=== PATIENT | male | born 1970 | race Caucasian/White ===

== ENCOUNTER 2017-01-22 20:18 | Inpatient (IN) | payer BC ==
--- NOTE | ~2017-01-22 | HP ---
Unit #: [id number] #: [id number] Patient: DONTAE ANDERSON [id number] [facility]. [place], [place] [address] [id number] MR#: [id number] NAME: DONTAE ANDERSON ROOM: 476 Age: 46 Sex: M Admission Date: 01/22/2017 : 1970 Attending Physician: Florin Dennis M.D. Primary Care Physician: No Primary Care Physician HISTORY AND PHYSICAL CHIEF COMPLAINT Nausea, vomiting. HISTORY OF PRESENT ILLNESS This is a 46-year-old gentleman who has had some nausea and vomiting and some mild abdominal pain and distention that started on Monday. He had an episode similar to this approximately five to six years ago. That required a week long hospitalization at [facility]. His last bowel movement and flatus were yesterday. He had a watery bowel movement yesterday. His granddaughters had the stomach flu with similar symptoms. He feels slightly better this morning. PAST SURGICAL HISTORY Significant for: 1. Repair of an incarcerated umbilical hernia by Dr. Owens in 2004. 2. He has also undergone a vasectomy. MEDICATIONS He is on no medications. ALLERGIES He has no known drug allergies. PAST MEDICAL HISTORY Negative. He does drink occasionally and denies any tobacco use. FAMILY HISTORY Negative for cancer. REVIEW OF SYSTEMS Negative for fevers or weight loss and is otherwise as above and review of the nurse's review of systems note. PHYSICAL EXAMINATION VITAL SIGNS: Temperature is 98.0, heart rate 74, blood pressure is 129/83,. He is in no acute distress. HEENT EXAM: Pupils are equal, reactive to light and accommodation. His extraocular muscles are intact. NECK: Without masses or bruits. LUNGS: Good breath sounds bilaterally with equal air exchange. CARDIAC EXAM: Regular rate and rhythm without murmur. ABDOMEN: Soft. It is minimally distended. There is no tenderness, no masses and no palpable hernias. EXTREMITIES: Without edema or cyanosis. Unit #: [id number] #: [id number] Patient: DONTAE ANDERSON NEUROLOGICAL: He is alert and oriented. There are no focal deficits. DIAGNOSTIC STUDIES LABORATORY: White blood count is down to 9000. Hemoglobin is 15. AST and ALT are slightly elevated. Alkaline phos. and total bilirubin are normal. IMAGING: CT scan preliminary report from the ER noted showed questionable small bowel obstruction. OVERALL IMPRESSION Clinically, this is a 46-year-old gentleman who has a partial small bowel obstruction. We are going to rest his bowels today and continue his IV hydration. He really doesn't have signs of small bowel obstruction clinically. I will repeat some interval KUB later today and probably advance his diet tomorrow if he continues to improve. Dictated by Tom Winters III, M.D. VCL/filiberto TD: 01/23/2017 07:09 JOB #: [id number] HISTORY AND PHYSICAL X Tom Winters III, MD X HISTORY AND PHYSICAL
--- NOTE | ~2017-01-22 | CT2 ---
[facility] A Service of [facility] RADIOLOGY TEXT RESULTS PATIENT: DONTAE ANDERSON LOCATION: [facility] 476-01 : [birth year] UNIT #: [id number] AGE: [address]: Florin Dennis SEX: M ORDER DR: [id number] [facility] [address] [place], [place] [address] [id number] I MR#: [id number] Acc #: [id number] NAME: DONTAE ANDERSON : 1970 SEX: M STUDY DATE/TIME: 01/22/2017 21:09 UNIT: [facility] ROOM: [facility] STUDY DESCRIPTION: CT Abd and Pelv W Cont Attending Physician: Florin Dennis M.D. Ordering Physician: Nilton Lozano M.D. Primary Care Physician: No Primary Care Physician MEDICAL IMAGING REPORT This report is preliminary unless electronic signature is present EXAM CT abdomen and pelvis with oral and IV contrast HISTORY Nausea and vomiting and abdomen pain for [address] abdomen and pelvis was performed with oral and IV contrast. This CT exam was performed with one or more of the following radiation dose reduction techniques: Automatic exposure control, adjustment of mA and/or kV according to patient size, and iterative reconstruction. FINDINGS CT abdomen: Diffuse fatty infiltration of the liver. Multiple gallstones measure up to nearly 1 cm. No gallbladder distension or biliary dilatation. The spleen, pancreas, kidneys, and adrenal glands are normal. Normal caliber abdominal aorta. No ascites. Moderately severe dilatation of the majority of small bowel throughout the abdomen, with air-fluid levels, measuring up to nearly 6 cm in the abdomen and pelvis. The colon is decompressed. No ascites. CT pelvis: Dilatation of multiple loops of small bowel in the pelvis. There may be a transition point from dilated to normal-caliber small bowel in the right lower quadrant, although this appears fairly gradual, and could simply represent peristalsis. The terminal ileum and colon are decompressed. Normal appendix. Minimal free fluid in the pelvis. Urinary bladder is normal. No adenopathy. 1.5 cm apparent lipoma in the small bowel in the anterior mid upper pelvis. IMPRESSION 1. Dilatation of predominately fluid-filled small bowel throughout the abdomen and pelvis with an apparent gradual transition in caliber in STS. [facility] A Service of [facility] RADIOLOGY TEXT RESULTS PATIENT: DONTAE ANDERSON LOCATION: [facility] 476-01 : [birth year] UNIT #: [id number] AGE: [address]: Florin Dennis SEX: M ORDER DR: the right lower quadrant which can be secondary to a small bowel stricture or adhesion. Small bowel measures up to nearly 6 cm in diameter in the upper abdomen. The terminal ileum and the colon decompressed. 2. Normal appendix. 3. Multiple gallstones. 4. Fatty infiltration of the liver. 5. 1.5 cm apparent lipoma in the small bowel in the anterior upper pelvis. Dictated by... Lucio Rodriguez M.D. THIS IS AN ELECTRONICALLY VERIFIED REPORT Lucio Rodriguez M.D. at 01/23/2017 2:20 PM DFL/randi TD: 01/23/2017 11:14 JOB #: [id number] MEDICAL IMAGING REPORT COPY
--- NOTE | ~2017-01-22 | DS ---
Unit #: [id number] #: [id number] Patient: DONTAE ANDERSON [id number] [place], [place] [address] [id number] I MR#: [id number] NAME: DONTAE ANDERSON ROOM: 476 Age: 46 Sex: M Admission Date: 01/22/2017 : 1970 Discharge Date: 01/28/2017 Attending Physician: Florin Dennis M.D. Primary Care Physician: No Primary Care Physician DISCHARGE SUMMARY HISTORY AND EXAM Mr. Anderson is an otherwise healthy 46-year-old gentleman who presented to the emergency room with complaints of nausea and vomiting and on x-ray in the emergency room there was concern he might have a partial small bowel obstruction. The patient was admitted, hydrated and on followup abdominal x-ray he still had stacking air-fluid levels consistent with small bowel obstruction. The patient has had a previous hospitalization for similar symptoms that resolved spontaneously but he stayed at home. He continued to have intermittent bouts of crampy abdominal discomfort. Because of the persistence of the radiologic evidence of small bowel obstruction, he was taken to the operating room where he underwent exploratory laparotomy and lysis of adhesions and incidental appendectomy. Postoperatively, he was afebrile throughout. On the second postoperative day, he regained bowel function but he was slow to advance with his diet. The patient was ambulating independently and continued to have bowel movements and could be put on oral pain medication and a diet. Today is the fourth postoperative day and he will be discharged home in stable condition. He is afebrile with stable vital signs. He is passing flatus and stool and he is tolerating oral intake although his appetite is not back to normal yet. His abdomen is soft and his wound is clean, dry and intact. He will be discharged with instructions to undergo diet as tolerated, ambulate ad aayush and do no lifting greater than 15 pounds or strenuous activity. He may shower but not submerge his wounds. He is to call and followup in the office in 10 to 14 days. Prescriptions for hydrocodone and Phenergan were left for pain control in case he had any nausea at home. Med reconciliation sheet was completed. Dictated by... Apolinar Beckwith M.D. FRANCISCA/filiberto TD: 01/30/2017 06:41 JOB #: [id number] Unit #: [id number] #: [id number] Patient: DONTAE ANDERSON DISCHARGE SUMMARY X Apolinar Beckwith MD X DISCHARGE SUMMARY
--- NOTE | ~2017-01-22 | OR ---
Unit #: [id number] #: [id number] Patient: DONTAE ANDERSON [id number] [place], [place] [address] [id number] I MR#: [id number] NAME: DONTAE ANDERSON ROOM: 476 Date of Procedure: 01/24/2017 Admission Date: 01/22/2017 Surgeon: Apolinar Beckwith M.D. : 1970 Attending Physician: Florin Dennis M.D. Primary Care Physician: Primary Care Physician No OPERATIVE REPORT PREOPERATIVE DIAGNOSIS Small-bowel obstruction. POSTOPERATIVE DIAGNOSIS Small-bowel obstruction. PROCEDURES PERFORMED Exploratory laparotomy, lysis of adhesions, incidental appendectomy, and removal of abdominal wall mesh. ANESTHESIA General endotracheal anesthesia. ESTIMATED BLOOD LOSS 50 mL. INDICATIONS FOR PROCEDURE Mr. Anderson is a 46-year-old gentleman, who presented to the hospital with nausea, vomiting, colicky abdominal pain, and abdominal distention. CT scan was concerning for small bowel obstruction. Followup abdominal x-rays remain consistent with small bowel obstruction. He had previous hospitalizations for similar episodes, which resolved with conservative management, but he has had multiple episodes of the same clinical situation. DESCRIPTION OF PROCEDURE The patient was transported from his hospital room to the operating room, and after induction of general endotracheal anesthesia, Henriquez catheter and SCDs were placed. The patient already had an NG tube. A midline incision was made and dissected down through the soft tissue and entered the peritoneal cavity. Upon entering the peritoneal cavity, he had markedly distended small bowel. We followed the small bowel as we eviscerated from the ligament of Treitz down to the right lower quadrant. In the right lower quadrant, he had an adhesive band running from near the appendix over the terminal ileum causing a high-grade partial small bowel obstruction. The adhesive band was mobilized and then sharply incised and released the terminal ileum. Although, there was some superficial evidence of compression at this site. There was no ischemic or injury to the bowel wall, so that resection was not necessary. In taking down the adhesive band, the mesoappendix was compromised, so the appendix was clamped, divided, and the base was ligated. The stump of the appendix was then inverted with a 2-0 silk suture. After completion of the lysis of Unit #: [id number] #: [id number] Patient: WHITE,DONTAE adhesions in the incidental appendectomy, the colon was not distended, but it was palpated and I did not feel any significant lesions. The stomach was decompressed. I did not palpate any gallstones and the liver felt normal. I again ran the small bowel from the ileocecal valve and the ligament of Treitz and no other significant findings were noted. The bowel was placed back in the anatomic position. The omentum was pulled over this small bowel. A FISH visceral retractor was placed and the fascia was closed with #1 Vicryl interrupted closely spaced sutures. However, prior to closing the fascia, he did have a 6.4 cm Ventralex patch underneath these umbilicus. Because that had been exposed, I went ahead and removed this mesh to prevent infection and was careful to close the fascia at this site with very closely placed sutures to prevent any recurrence of this hernia. Once the fascia was closed, I irrigated the soft tissue with saline and Betadine. The dermis was reapproximated with Vicryl suture and then the skin was closed with sterile skin mir. Dry sterile dressing was placed. Sponges and needle counts were correct x3. The patient tolerated the procedure well and transported to recovery in stable condition. Findings and postoperative expectations were discussed with his family. Dictated by... Colleen Kang/dominic TD: 01/25/2017 04:43 JOB #: [id number] OPERATIVE REPORT X Apolinar Beckwith MD X PROCEDURE OPERATIVE NOTE
--- NOTE | ~2017-01-22 | EKG ---
PATIENT: DONTAE ANDERSON UNIT #: [id number] Ventricular Rate: 90 BPM Atrial Rate: 90 BPM P-R Interval: 140 ms QRS Duration: 88 ms Q-T Interval: 370 ms QTC Calculation(Bezet): 452 ms P [place]: 48 degrees Calculated R [place]: 30 degrees Calculated T [place]: 16 degrees Diagnosis Line: Normal sinus rhythm Diagnosis Line: Normal ECG Diagnosis Line: No previous ECGs available Diagnosis Line: Confirmed by NUNU OVIEDO MD ([id number]) on Diagnosis Line: 01/24/2017 4:15:06 PM INTERPRETING MD: IVELISSE RITTER
--- NOTE | ~2017-01-22 | CR4 ---
[facility] A Service of [facility] & [facility] RADIOLOGY TEXT RESULTS PATIENT: DONTAE ANDERSON LOCATION: [place] [address]- : [birth year] UNIT #: [id number] AGE: [address]: Florin Dennis SEX: M ORDER DR: [id number] [facility] [address] [facility] [place], [place] [address] [id number] I MR#: [id number] Acc #: [id number] NAME: DONTAE ANDERSON : 1970 SEX: M STUDY DATE/TIME: 01/23/2017 15:29 UNIT: [facility] ROOM: [facility] STUDY DESCRIPTION: CR Abdomen Flat Upright or Dec Attending Physician: Florin Dennis M.D. Ordering Physician: Tom Winters III, M.D. Primary Care Physician: No Primary Care Physician MEDICAL IMAGING REPORT This report is preliminary unless electronic signature is present EXAM Abdomen flat and upright HISTORY Abdomen pain for 2 days. Small bowel obstruction. FINDINGS Flat and upright views of the abdomen demonstrate marked dilatation of small bowel in the upper abdomen measuring up to nearly 9 cm in diameter, and moderate dilatation of small bowel loops in the lower abdomen and upper pelvis. Findings suggest partial mechanical small bowel obstruction. The colon and rectum are decompressed. No free air is identified but the hemidiaphragms are both partly excluded on the upright view, limiting sensitivity, particularly under the elevated right hemidiaphragm. IMPRESSION 1. Small bowel dilatation in the abdomen and upper pelvis measuring up to nearly 9 cm in diameter in the left upper quadrant suggesting partial mechanical small bowel obstruction. Gas in nondistended colon and rectum. No bowel displacement. 2. No free air is identified but sensitivity is limited on the upright views with partial exclusion of the hemidiaphragms. Dictated by... Lucio Rodriguez M.D. THIS IS AN ELECTRONICALLY VERIFIED REPORT Lucio Rodriguez M.D. at 01/24/2017 3:30 PM DFL/bd TD: 01/24/2017 06:09 [facility] A Service of [facility] & [facility] RADIOLOGY TEXT RESULTS PATIENT: DONTAE ANDERSON LOCATION: [place] [address] : [birth year] UNIT #: [id number] AGE: [address]: Florin Dennis SEX: M ORDER DR: JOB #: [id number] MEDICAL IMAGING REPORT COPY
[2017-01-22 19:54] LABS: URINE SOURCE CLEAN CATCH
[2017-01-22 19:55] LABS: BASOPHIL% 0.1 % (0-2.5); EOSINOPHIL# 0.1 X10e3 (0-0.7); EOSINOPHIL% 0.6 % (0.0-7.0); HEMOGLOBIN 16.4 gm/dL (13.0-16.0); LYMPHOCYTE# 0.8 X10e3 (1.0-3.5); LYMPHOCYTE% 6.5 % (17.0-45.0); MEAN CELL VOLUME 85.2 FL (83-96); MEAN CORPUSCULAR HEMOGLOBIN 28.5 PG (28-34); MEAN CORPUSCULAR HGB CONC 33.4 g/dL (30-36); MEAN PLATELET VOLUME 9.8 FL (6.5-11.5); MONOCYTE# 1.1 X10e3 (0-1.0); MONOCYTE% 9.1 % (3.0-12.0); NEUTROPHIL# 10.4 X10e3 (1.5-7.1); NEUTROPHIL% 83.7 % (40-75); PLATELET COUNT 212 X10e3 (140-420); RED BLOOD COUNT 5.75 X10e (3.90-5.60); RED CELL DISTRIBUTION WIDTH 13.3 % (11.0-15.5); WHITE BLOOD COUNT 12.5 X10e3 (4.0-10.5)
[2017-01-22 19:58] LABS: DIFF IND NO
[2017-01-22 20:00] LABS: URINE APPEARANCE CLOUDY; URINE BLOOD NEG (NEG); URINE COLOR DK YELLOW; URINE GLUCOSE NEG (NEG); URINE KETONE NEG (NEG); URINE LEUKOCYTE ESTERASE NEG (NEG); URINE NITRATE NEG (NEG); URINE PH 5.5 (5-8); URINE PROTEIN 1+ (NEG); URINE SPECIFIC GRAVITY 1.033 (1.003-1.035)
[2017-01-22 20:03] LABS: URBCS1 AUWI 0-2 /[HPF] (0-2); URINE BACTERIA AUWI NEG (NEGATIVE); URINE SQUAMOUS EPITHELIAL CELL NONE SEEN /[HPF]; UWBCS1 AUWI 0-2 (0-5)
[2017-01-22 20:08] LABS: URINE BILIRUBIN NEG (NEG)
[2017-01-22 20:20] LABS: ALBUMIN SERUM 4.4 g/dL (3.5-5.0); ALKALINE PHOSPHATASE 87 U/L (32-92); ALT (SGPT) 158 U/L (10-40); AMYLASE 14 U/L (0-46); AST (SGOT) 83 U/L (10-42); BILIRUBIN, DIRECT 0.3 mg/dL (0.0-0.2); BILIRUBIN,INDIRECT 1.2 mg/dL (0.0-0.9); BILIRUBIN,TOTAL 1.5 mg/dL (0.2-2.0); BLOOD UREA NITROGEN 24 mg/dL (9-23); BUN/CREATININE RATIO 26.66; CALCIUM SERUM 8.8 mg/dL (8.4-10.2); CARBON DIOXIDE 23 mmol/L (22-31); CHLORIDE 99 mmol/L (100-111); CREATININE SERUM 0.9 mg/dL (0.6-1.4); GLOM FILT RATE Estimated ABOVE60 mL/min (>60); GLUCOSE FASTING 146 mg/dL (70-110); LIPASE 13 U/L (22-51); POTASSIUM 3.6 mmol/L (3.5-5.1); PROTEIN TOTAL SERUM 8.1 g/dL (6.0-8.3); SODIUM 134 mmol/L (135-145)
[2017-01-22 20:23] LABS: CULTURE INDICATED? NO; U HYALINE CASTS AUWI 0-2 /[LPF]
[2017-01-22] MEDS ORDERED: NO MEDICATIONS (22:06)
[2017-01-23 04:18] LABS: BASOPHIL% 0.3 % (0-2.5); EOSINOPHIL% 0.5 % (0.0-7.0); HEMATOCRIT 46.2 % (38.0-50.0); HEMOGLOBIN 15.8 gm/dL (13.0-16.0); LYMPHOCYTE# 0.8 X10e3 (1.0-3.5); LYMPHOCYTE% 8.7 % (17.0-45.0); MEAN CELL VOLUME 85.9 FL (83-96); MEAN CORPUSCULAR HEMOGLOBIN 29.4 PG (28-34); MEAN CORPUSCULAR HGB CONC 34.2 g/dL (30-36); MEAN PLATELET VOLUME 9.6 FL (6.5-11.5); MONOCYTE# 1.1 X10e3 (0-1.0); MONOCYTE% 11.2 % (3.0-12.0); NEUTROPHIL# 7.6 X10e3 (1.5-7.1); NEUTROPHIL% 79.3 % (40-75); PLATELET COUNT 191 X10e3 (140-420); RED BLOOD COUNT 5.37 X10e (3.90-5.60); RED CELL DISTRIBUTION WIDTH 13.6 % (11.0-15.5); WHITE BLOOD COUNT 9.6 X10e3 (4.0-10.5)
[2017-01-23 04:19] LABS: DIFF IND NO
[2017-01-23 04:46] LABS: BLOOD UREA NITROGEN 22 mg/dL (9-23); CALCIUM SERUM 8.2 mg/dL (8.4-10.2); CARBON DIOXIDE 26 mmol/L (22-31); CHLORIDE 98 mmol/L (100-111); GLOM FILT RATE Estimated ABOVE60 mL/min (>60); GLUCOSE FASTING 175 mg/dL (70-110); POTASSIUM 3.6 mmol/L (3.5-5.1); SODIUM 131 mmol/L (135-145)
[2017-01-24 03:37] LABS: BASOPHIL% 0.4 % (0-2.5); EOSINOPHIL# 0.2 X10e3 (0-0.7); EOSINOPHIL% 3.6 % (0.0-7.0); HEMATOCRIT 42.2 % (38.0-50.0); HEMOGLOBIN 14.4 gm/dL (13.0-16.0); LYMPHOCYTE# 1.1 X10e3 (1.0-3.5); LYMPHOCYTE% 17.7 % (17.0-45.0); MEAN CELL VOLUME 86.1 FL (83-96); MEAN CORPUSCULAR HEMOGLOBIN 29.3 PG (28-34); MEAN CORPUSCULAR HGB CONC 34.1 g/dL (30-36); MEAN PLATELET VOLUME 9.3 FL (6.5-11.5); MONOCYTE# 0.8 X10e3 (0-1.0); MONOCYTE% 13.4 % (3.0-12.0); NEUTROPHIL# 3.9 X10e3 (1.5-7.1); NEUTROPHIL% 64.9 % (40-75); PLATELET COUNT 175 X10e3 (140-420); RED CELL DISTRIBUTION WIDTH 13.1 % (11.0-15.5)
[2017-01-24 03:38] LABS: DIFF IND NO
[2017-01-24 04:11] LABS: BLOOD UREA NITROGEN 17 mg/dL (9-23); CALCIUM SERUM 7.9 mg/dL (8.4-10.2); CARBON DIOXIDE 30 mmol/L (22-31); CHLORIDE 105 mmol/L (100-111); GLOM FILT RATE Estimated ABOVE60 mL/min (>60); GLUCOSE FASTING 135 mg/dL (70-110); POTASSIUM 4.3 mmol/L (3.5-5.1); SODIUM 135 mmol/L (135-145)
[2017-01-25 05:45] LABS: BASOPHIL% 0.3 % (0-2.5); EOSINOPHIL# 0.1 X10e3 (0-0.7); EOSINOPHIL% 1.9 % (0.0-7.0); HEMATOCRIT 42.9 % (38.0-50.0); HEMOGLOBIN 14.3 gm/dL (13.0-16.0); LYMPHOCYTE# 0.7 X10e3 (1.0-3.5); LYMPHOCYTE% 13.1 % (17.0-45.0); MEAN CELL VOLUME 86.3 FL (83-96); MEAN CORPUSCULAR HEMOGLOBIN 28.7 PG (28-34); MEAN CORPUSCULAR HGB CONC 33.2 g/dL (30-36); MEAN PLATELET VOLUME 9.5 FL (6.5-11.5); MONOCYTE# 0.8 X10e3 (0-1.0); MONOCYTE% 15.9 % (3.0-12.0); NEUTROPHIL# 3.6 X10e3 (1.5-7.1); NEUTROPHIL% 68.8 % (40-75); PLATELET COUNT 209 X10e3 (140-420); RED BLOOD COUNT 4.97 X10e (3.90-5.60); RED CELL DISTRIBUTION WIDTH 13.4 % (11.0-15.5); WHITE BLOOD COUNT 5.2 X10e3 (4.0-10.5)
[2017-01-25 05:51] LABS: DIFF IND NO
[2017-01-25 06:38] LABS: BLOOD UREA NITROGEN 12 mg/dL (9-23); BUN/CREATININE RATIO 13.33; CALCIUM SERUM 8.5 mg/dL (8.4-10.2); CARBON DIOXIDE 27 mmol/L (22-31); CHLORIDE 103 mmol/L (100-111); CREATININE SERUM 0.9 mg/dL (0.6-1.4); GLOM FILT RATE Estimated ABOVE60 mL/min (>60); GLUCOSE FASTING 137 mg/dL (70-110); MAGNESIUM 2.4 mg/dL (1.6-3.0); POTASSIUM 4.5 mmol/L (3.5-5.1); SODIUM 140 mmol/L (135-145)
[2017-01-27 06:42] LABS: BLOOD UREA NITROGEN 15 mg/dL (9-23); BUN/CREATININE RATIO 16.66; CALCIUM SERUM 8.4 mg/dL (8.4-10.2); CARBON DIOXIDE 31 mmol/L (22-31); CHLORIDE 98 mmol/L (100-111); CREATININE SERUM 0.9 mg/dL (0.6-1.4); GLOM FILT RATE Estimated ABOVE60 mL/min (>60); GLUCOSE FASTING 128 mg/dL (70-110); MAGNESIUM 2.6 mg/dL (1.6-3.0); PHOSPHOROUS 3.1 mg/dL (2.5-4.6); POTASSIUM 4.7 mmol/L (3.5-5.1); SODIUM 136 mmol/L (135-145)
[2017-01-28] MEDS ORDERED: HYDROCODONE/APA1 T16 PO (09:32)
[2017-01-28] MEDS ORDERED: PHENERGAN25 MG PO (09:33)
== END 2017-01-28 12:55 | disposition home or self-care (01) | DRG 337 ==
LOC: CED 20:18 → CEDOF 22:15 → C4C 23:17
PROVIDERS: Emergency Medicine; Specialist; Surgery
PROC: 0DTJ0ZZ Resection of Appendix, Open Approach (ICD-10-PCS; 2017-01-24)
PROC: 0WPF0JZ Removal of Synthetic Substitute from Abdominal Wall, Open Approach (ICD-10-PCS; 2017-01-24)
PROC: 0D9670Z Drainage of Stomach with Drainage Device, Via Natural or Artificial Opening (ICD-10-PCS; 2017-01-24)
PROC: 0DNB0ZZ Release Ileum, Open Approach (ICD-10-PCS; principal; 2017-01-24 13:00)
DX: K56.5 Intestinal adhesions [bands] with obstruction (postinfection) (principal); F10.10 Alcohol abuse, uncomplicated; Z98.52 Vasectomy status
CPT/HCPCS: 36415; 74020; 74177; 80048; 80076; 81003; 82150; 83690; 83735; 84100; 85025; 88302; 88304; 93005; 94760; 96361; 96374; 96375; 99285; C9113; J0330; J1170; J1650; J1885; J2250; J2270; J2405; J2710; J2765; J3010; Q9967